=== PATIENT | female | born 1995 | race Two or more races ===

== ENCOUNTER 2025-09-18 01:59 | Emergency (ER) | payer MEDICAID, OTHER ==
[~2025-09-18] VITALS: Ht 154.9 cm; Wt 85.5 kg
[2025-09-18 03:23] LABS: Hematocrit 37.1 % (36.0-46.0); Hemoglobin 12.3 g/dL (12.2-16.2); Mean Corpuscular Hemoglobin 28.0 pg (28.0-32.0); Mean Corpuscular Volume 84.5 fL (80.0-100.0); Nucleated Red Blood Cells % 0.1 %
[2025-09-18 03:32] LABS: Alanine Aminotransferase 30 U/L (7-40); Albumin 4.5 g/dL (3.2-4.8); Alkaline Phosphatase 101 U/L (46-116); Anion Gap 10 (5-15); BUN/Creatinine Ratio 16.0 (10.0-20.0); Blood Urea Nitrogen 12 mg/dL (9-23); Calcium 9.1 mg/dL (8.7-10.4); Carbon Dioxide 26 mmol/L (20-31); Chloride 106 mmol/L (98-107); Lipase 32 U/L (12-53); Potassium 3.9 mmol/L (3.5-5.1); Sodium 142 mmol/L (136-145); Total Protein 7.6 g/dL (5.7-8.2)
[2025-09-18 03:33] LABS: Bilirubin, Total 0.3 mg/dL (0.2-1.0)
[2025-09-18 03:47] LABS: Glucose 110 mg/dL (74-106)
--- NOTE | 2025-09-18 04:10 | ED.PDOC ---
History of Present Illness HPI Comments 30-year-old female with no past medical history presenting for evaluation of midepigastric pain, right mid back pain over the past day. Patient reports a pain that wraps around to her mid back that started yesterday. Started to have some midepigastric burning discomfort as well. Some nausea, no vomiting. Pain has been fluctuating in intensity since last night. Denies any urinary symptoms. Denies any chest pain, shortness of breath. No recent fever, cough. She states that many years ago she was told that she had gallstones. Still has her gallbladder, has not been evaluated by a surgeon. However, states that she was then evaluated another time in the past year for similar discomfort and at that time had an ultrasound and was told that she did not have gallstones. 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 Hx Family History Family History: Reviewed,noncontributory to illness Social History Smoker: Non-Smoker Alcohol: Denies ETOH Use Drugs: Denies Drug Use Lives In: Home Constitutional: denies: chills, diaphoresis, fatigue, fever, malaise, sweats, weakness, others EENTM: denies: blurred vision, double vision, ear bleeding, ear discharge, ear drainage, ear pain, ear ringing, eye pain, eye redness, hearing loss, mouth pain, mouth swelling, nasal discharge, nose bleeding, nose congestion, nose pain, photophobia, tearing, throat pain, throat swelling, voice changes, others Respiratory: denies: cough, hemoptysis, orthopnea, SOB at rest, shortness of breath, SOB with excertion, stridor, wheezing, others Cardiovascular: denies: chest pain, dizzy spells, diaphoresis, Dyspnea on exertion, edema, irregular heart beat, left arm pain, lightheadedness, palpitations, PND, syncope, others Gastrointestinal: reports: abdominal pain, nausea Genitourinary: denies: abnormal vagina bleeding, burning, dyspareunia, dysuria, flank pain, frequency, hematuria, incontinence, pain, , vagina discharge, urgency, others Neurological: denies: dizziness, fainting, headache, left sided numbness, left sided weakness, numbness, paresthesia, pre-existing deficit, right sided numbness, right sided weakness, seizure, speech problems, tingling, tremors, weakness, others Musculoskeletal: denies: back pain, gout, joint pain, joint swelling, muscle pain, muscle stiffness, neck pain, others Integumetry: denies: bruises, change in color, change in hair/nails, dryness, laceration, lesions, lumps, rash, wounds, others Allergic/Immunocompromised: denies: Difficulty Healing, Frequent Infections, Hives, Itching, others Hematologic/Lymphatic: denies: anemia, blood clots, easy bleeding, easy bruising, swollen glands, others Endocrine: denies: excessive hunger, excessive sweating, excessive thirst, excessive urination, flushing, intolerance to cold, intolerance to heat, unexplained weight gain, unexplained weight loss, others Psychiatric: denies: anxiety, bipolar disorder, depression, hopeless, panic disorder, schizophrenia, sleepless, suicidal, others All Other Systems: Reviewed and Negative Physical Exam General Appearance: No Apparent Distress, Normal HEENT: Normal ENT Inspection, Pharynx Normal, TMs Normal Neck: Full Range of Motion, Non-Tender, Normal, Normal Inspection Respiratory: Chest Non-Tender, Lungs Clear, No Accessory Muscle Use, No Respiratory Distress, Normal Breath Sounds Cardiovascular: No Edema, No JVD, No Murmur, No Gallop, Normal Peripheral Pulses, Regular Rate/Rhythm Breast Exam: Deferred Gastrointestinal: No Organomegaly, No Pulsatile Mass, Normal Bowel Sounds, Soft, Other (+mid epigastric ttp, negative Moctezuma's) Genitalia: Deferred Pelvic: Deferred Rectal: Deferred Extremities: No calf tenderness, Normal capillary refill, Normal inspection, Normal range of motion, Non-tender, No pedal edema Musculoskeletal : Apperance: Normal Neurologic: Alert, crusher plant operator II-XII nml as Tested, No Motor Deficits, Normal Affect, Normal Mood, No Sensory Deficits Cerebellar Function: Normal Reflexes: Normal Skin: Dry, Normal Color, Warm Lymphatic: No Adenopathy Was a procedure done? Was a procedure done?: No Differential Dx Considerations may include: Gastritis versus peptic ulcer disease versus pancreatitis versus biliary colic versus acute cholecystitis X-Ray, Labs, Meds, VS Vital Signs Date Time Temp Pulse Resp B/P (MAP) Pulse Ox O2 Delivery O2 Flow Rate FiO2 09/18/25 04:17 98.1 61 18 133/78 (96) 99 98.1 09/18/25 02:10 98.9 75 18 143/89 97 98.9 Lab Test 09/18/25 04:30 09/18/25 02:34 Range/Units Urine Color Yellow Yellow Urine Clarity Clear Clear Urine pH 5.5 5.0-9.0 Urine Specific [place] 1.035 1.001-1.035 Urine Protein Trace H Negative Urine Ketones Trace Negative Urine Blood 2+ H Negative /uL Urine Nitrite Negative Negative Urine Bilirubin Negative Negative Urine Urobilinogen Normal Negative mg/dL Urine Leukocyte Esterase Negative Negative /uL Urine RBC 7 0 - 4 /hpf Urine Microscopic WBC 1 0-5 /HPF Urine Squamous Epithelial Cells Few <5 /hpf Urine Bacteria None seen None Seen /hpf Urine Mucus Few None Seen Urine Glucose Normal Normal mg/dL Urine Test Negative Negative White Blood Count 11.2 H 4.4-10.8 10^3/uL Red Blood Count 4.40 4.0-5.20 10^6/uL Hemoglobin 12.3 12.2-16.2 g/dL Hematocrit 37.1 36.0-46.0 % Mean Corpuscular Volume 84.5 80.0-100.0 fL Mean Corpuscular Hemoglobin 28.0 28.0-32.0 pg Mean Corpuscular Hemoglobin Concent 33.2 32.0-36.0 g/dL Red Cell Distribution Width 13.5 11.8-14.3 % Platelet Count 303 140-450 10^3/uL Mean Platelet Volume 8.8 6.9-10.8 fL Neutrophils (%) (Auto) 57.8 37.0-80.0 % Lymphocytes (%) (Auto) 35.1 10.0-50.0 % Monocytes (%) (Auto) 5.6 0.0-12.0 % Eosinophils (%) (Auto) 1.0 0.0-7.0 % Basophils (%) (Auto) 0.5 0.0-2.0 % Neutrophils # (Auto) 6.5 1.6-8.6 10 ^3/uL Lymphocytes # (Auto) 3.9 0.4-5.4 10 ^3/uL Monocytes # (Auto) 0.6 0-1.3 10 ^3/uL Eosinophils # (Auto) 0.1 0-0.8 10 ^3/uL Basophils # (Auto) 0.1 0-0.2 10 ^3/uL Nucleated Red Blood Cells 0.1 % Sodium Level 142 136-145 mmol/L Potassium Level 3.9 3.5-5.1 mmol/L Chloride Level 106 98-107 mmol/L Carbon Dioxide Level 26 20-31 mmol/L Anion Gap 10 5-15 Blood Urea Nitrogen 12 9-23 mg/dL Creatinine 0.75 0.550-1.02 mg/dL Glomerular Filtration Rate Calc 110 >90 mL/min BUN/Creatinine Ratio 16.0 10.0-20.0 Serum Glucose 110 H 74-106 mg/dL Calcium Level 9.1 8.7-10.4 mg/dL Total Bilirubin 0.3 0.2-1.0 mg/dL Aspartate Amino Transferase (AST) 26 13-40 U/L Alanine Aminotransferase (ALT) 30 7-40 U/L Alkaline Phosphatase 101 46-116 U/L Total Protein 7.6 5.7-8.2 g/dL Albumin 4.5 3.2-4.8 g/dL Lipase 32 12-53 U/L Current Medications Medications (Trade) Dose Ordered Sig/Effie Route Start Time Stop Time Status Last Admin Acetaminophen (Tylenol Tablet Or Capsule) 1,000 mg ONCE ONCE PO 09/18/25 03:00 09/18/25 03:01 NV 09/18/25 04:33 Famotidine (Pepcid Tablet) 20 mg ONCE ONCE PO 09/18/25 03:00 09/18/25 03:01 NV 09/18/25 04:33 Ondansetron HCl (Zofran Po) 4 mg ONCE ONCE PO 09/18/25 03:00 09/18/25 03:01 DC 09/18/25 04:33 Al Hydrox/Mg Hydrox/Simethicone (Maalox Plus) 30 ml ONCE ONCE PO 09/18/25 03:00 09/18/25 03:01 DC 09/18/25 04:33 Ketorolac Tromethamine (Toradol Injection) 30 mg ONCE ONCE IM 09/18/25 03:15 09/18/25 03:16 DC 09/18/25 04:34 Time of 1ST Reevaluation: 04:07 Reevaluation 1ST: Improved Time of 2ND Reevaluation: 05:50 Reevaluation 2ND: Improved Patient Education/Counseling: Diagnosis, Treatment, Need For Follow Up Family Education/Counseling: Diagnosis, Treatment, Need For Follow Up SEPSIS Sepsis Screen Date sepsis recognized/suspect: Sep 18, 2025 Time Sepsis recognized/suspect: 209 Recent Procedure: No On Antibiotic Therapy: No Respiratory Rate >20: No Heart Rate >90: No Temp<36 C (96.8 F) or >38.3 C: No SBP <90 or MAP <65 mmHG: No New Acute Mental Status Change: No Is the patient on CPAP, BIPAP,: No Physician Orders Abdomen Limited (09/18/25 03:04) Vital Signs Date Time Temp Pulse Resp B/P (MAP) Pulse Ox O2 Delivery O2 Flow Rate FiO2 09/18/25 04:17 98.1 61 18 133/78 (96) 99 98.1 09/18/25 02:10 98.9 75 18 143/89 97 98.9 Laboratory Tests Test 09/18/25 02:34 White Blood Count 11.2 10^3/uL (4.4-10.8) H Medications Medications Dose Ordered Sig/Effie Route Start Time Stop Time Status Last Admin Dose Admin Acetaminophen 1,000 mg ONCE ONCE PO 09/18/25 03:00 09/18/25 03:01 DC 09/18/25 04:33 Al Hydrox/Mg Hydrox/Simethicone 30 ml ONCE ONCE PO 09/18/25 03:00 09/18/25 03:01 DC 09/18/25 04:33 Famotidine 20 mg ONCE ONCE PO 09/18/25 03:00 09/18/25 03:01 DC 09/18/25 04:33 Ketorolac Tromethamine 30 mg ONCE ONCE IM 09/18/25 03:15 09/18/25 03:16 DC 09/18/25 04:34 Ondansetron HCl 4 mg ONCE ONCE PO 09/18/25 03:00 09/18/25 03:01 DC 09/18/25 04:33 Departure 1 Departure Time of Disposition: 04:07 (30-year-old female with no past medical history presenting for evaluation of midepigastric pain, right mid back pain over the past day. Given the midepigastric pain consider possible gastritis versus peptic ulcer disease versus reflux. Patient with mid abdominal pain, however, does not radiate to the back, lipase within normal limits, does not seem con sistent with acute pancreatitis. Given the right upper quadrant pain radiating to the mid back could be consistent with biliary colic. Patient arrives with normal vitals. Has negative Moctezuma's here, no critical leukocytosis, does not seem consistent with acute cholecystitis. Ultrasound was initially ordered, however, no video game repair technician available overnight. Urinalysis with no signs to suggest a urinary tract infection or pyelonephritis. Patient with no radiation of pain from flank to groin area, no history of nephrolithiasis, does not seem consistent with renal colic. CBC with no evidence of critical leukocytosis or significant anemia. Metabolic panel is notable for no evidence of acute electrolyte abnormalities or acute kidney insufficiency. Liver function tests show no evidence of abnormalities. Patient was treated for discomfort with IM Toradol, oral Tylenol for possible biliary colic. Was given oral Pepcid, Maalox, ODT Zofran for possible gastritis discomfort. Upon reassessment patient is feeling improved. Does not require ultrasound today as I do not suspect acute cholecystitis, choledocholithiasis or other acute biliary process. Patient is stable for discharge for further outpatient management. Advised to follow up with outpatient primary care doctor for referral to see a general surgeon regarding her cholelithiasis. Will be given a prescription for Pepcid, Maalox, Tylenol to take as needed.) Impression: Primary Impression: Epigastric pain Additional Impression: Nausea Disposition: HOME / SELF CARE / HOMELESS Condition: Stable e-Prescriptions Acetaminophen (Acetaminophen Extra Stren) 500 Mg Tab 1000 MG PO Q8HPRN PRN for 7 Days, #42 TAB Prov: JOAQUIN HOWELL MD 09/18/25 Alum & Mag Hydrox-Simethicone (Maalox Plus) 30 Ml Ss 30 ML PO BIDPRN PRN for 7 Days, #240 ML Prov: JOAQUIN HOWELL MD 09/18/25 Famotidine (PEPCID TABLET) 20 Mg Tb 1 TAB PO DAILY for 30 Days, #30 TAB 5 Refills Prov: JOAQUIN HOWELL MD 09/18/25 Discharged With: Self Critical Care Note Critical Care Time?: No Stability Stability form required: No JOAQUIN HOWELL MD Sep 18, 2025 04:09
[2025-09-18] MEDS: MAALOX PLUS or MAALOX 30 ML PO ONE (04:33)
[2025-09-18] MEDS: ONDANSETRON ODT 4 MG TAB PO ONE (04:33)
[2025-09-18] MEDS: FAMOTIDINE 20 MG TAB PO ONE (04:33)
[2025-09-18] MEDS: ACETAMINOPHEN 500 MG TAB or CAP PO ONE (04:33)
[2025-09-18] MEDS: KETOROLAC TROMETH 60MG/2ML VIAL IM ONE (04:34)
[2025-09-18 04:52] LABS: Urine Protein, UAD TRACE (Negative)
[2025-09-18] MEDS ORDERED: ACET-6 PO (06:01)
[2025-09-18] MEDS ORDERED: MAA30LQ PO (06:01)
[2025-09-18] MEDS ORDERED: FAMO20TA10 PO (06:01)
[2025-09-18 06:10] VITALS: BP 124/76; PULSE 63; RESP 14; TEMP 98.1; O2SAT 100
== END 2025-09-18 06:11 | disposition home or self-care (01) ==
LOC: ER 01:59
DX: R10.13 Epigastric pain (principal); R11.0 Nausea; M54.6 Pain in thoracic spine
CPT/HCPCS: 36415; 80053; 81001; 81025; 83690; 85025; 96372; 99284; J1885; Q0162